=== PATIENT | male | born 1940 | race Caucasian/White ===

== ENCOUNTER → 2016-12-14 | Outpatient (CLI) | payer OTHER, MEDICARE | LOC: KOH-I 09:05 | DX: M25.572 Pain in left ankle and joints of left foot (principal) | CPT/HCPCS: 73610 ==

== ENCOUNTER → 2021-12-29 | Outpatient (CLI) | payer OTHER ==
[~2021-12-29] MED LIST: AMBIEN10 MG PO; ASPIR 8181 MG PO; ATORVASTATIN CA80 MG PO; FINASTERIDE5 MG PO; FLOMAX0.4 MG PO; GLUCOPHAGE850 MG PO; HYTRIN CAP 5 MG5 MG PO; LASIX20 MG PO; LEVEMIR FL100 UNIT/1 SQ; LOPRESSOR50 MG PO; NORCO 10-325 T1 EACH PO; NOVOLOG FL100 UNIT/1 SQ; PRINIVIL5 MG PO; XARELTO20 MG PO
== END ==
LOC: RAD 10:28
DX: R05.9 Cough, unspecified (principal)
CPT/HCPCS: 71046

== ENCOUNTER 2022-05-10 10:36 | Inpatient (IN) | payer OTHER ==
[~2022-05-10] VITALS: Ht 180.3 cm; Wt 77.1 kg
[~2022-05-10 10:36] MED LIST changes: +ATORVASTATIN CA40 MG PO; -ATORVASTATIN CA80 MG PO; +GLUCOPHAGE 850850 MG PO; -GLUCOPHAGE850 MG PO; +HYDROCODON-ACE1 EAC6 PO; -HYTRIN CAP 5 MG5 MG PO; -NORCO 10-325 T1 EACH PO; +TERAZOSIN HCL5 MG PO
[2022-05-10 15:14] LABS: HEMOGLOBIN 10.4 gm/dl (14.0-17.5); RED BLOOD COUNT 3.26 M/UL (4.20-5.50); WHITE BLOOD COUNT 14.7 K/UL (4.5-11.0)
[2022-05-10] MEDS ORDERED: CEPHALEXIN500 MG PO (15:58)
[2022-05-10] MEDS ORDERED: DOXYCYCLINE HY100 MG PO (15:58)
[2022-05-11 02:20] LABS: HEMOGLOBIN 9.3 gm/dl (14.0-17.5); WHITE BLOOD COUNT 14.8 K/UL (4.5-11.0)
[2022-05-11 02:30] LABS: RED BLOOD COUNT 2.89 M/UL (4.20-5.50)
[2022-05-11 02:57] LABS: BUN/CREATININE RATIO 14 (0-10)
[2022-05-11 08:54] LABS: HEMOGLOBIN 9.6 gm/dl (14.0-17.5); RED BLOOD COUNT 3.03 M/UL (4.20-5.50); WHITE BLOOD COUNT 13.2 K/UL (4.5-11.0)
[2022-05-11 09:22] LABS: BUN/CREATININE RATIO 15 (0-10)
[2022-05-11] MEDS ORDERED: OXYBUTYNIN CHLOR5 M1 PO (13:54)
[2022-05-11] MEDS ORDERED: VITAMIN C500 M4 PO (13:57)
--- NOTE | 2022-05-11 23:45 | NUR ---
PATIENT HAD RECEIVED AMBIEN ORDERED. NOW, CONFUSED , HALLUCINATING , ATTEMPTING TO GET OUT OF BED. ATTEMPTS TO REORIENT UNSUCCESSFUL. BED IN LOW POSTION, SR UP , BED ALARM ON.
--- NOTE | 2022-05-12 03:38 | NUR ---
CONTINUES TO ATTEMPT CLIMBING OVER SR OF BED. ATTEMPTS TO REORIENT UNSUCCESSFUL. HE RESPONDS BY LAUGHING . WILL CONTINUE TO MONITOR
[2022-05-12 04:47] LABS: HEMOGLOBIN 9.9 gm/dl (14.0-17.5); RED BLOOD COUNT 3.13 M/UL (4.20-5.50); WHITE BLOOD COUNT 11.8 K/UL (4.5-11.0)
[2022-05-12 06:07] LABS: BUN/CREATININE RATIO 13 (0-10)
[2022-05-13 04:56] LABS: RED BLOOD COUNT 3.17 M/UL (4.20-5.50); WHITE BLOOD COUNT 9.7 K/UL (4.5-11.0)
[2022-05-13 05:23] LABS: BUN/CREATININE RATIO 10 (0-10)
[2022-05-13] MEDS ORDERED: MULTAQ 400 MG400 MG PO (10:22)
[2022-05-13] MEDS ORDERED: BACTRIM DS TAB1 EACH PO (10:22)
== END 2022-05-13 17:03 | disposition home or self-care (01) | DRG 603 ==
LOC: ER1 10:36 → CCU 18:55 → CDU 18:55 → CCU 05-11 03:23 → PROG CARE 05-12 16:22
PROVIDERS: Emergency Medicine; ADMIT Family Medicine
PROC: B24BZZZ Ultrasonography of Heart with Aorta (ICD-10-PCS; principal; 2022-05-11)
PROC: 0J940ZZ Drainage of Right Neck Subcutaneous Tissue and Fascia, Open Approach (ICD-10-PCS; 2022-05-12)
DX: L02.11 Cutaneous abscess of neck (principal); I48.19 Other persistent atrial fibrillation; F01.50 Vascular dementia, unspecified severity, without behavioral disturbance, psychotic disturbance, mood disturbance, and anxiety; M51.36 Other intervertebral disc degeneration, lumbar region; N40.0 Benign prostatic hyperplasia without lower urinary tract symptoms; E78.5 Hyperlipidemia, unspecified; I10 Essential (primary) hypertension; L72.3 Sebaceous cyst; E87.6 Hypokalemia; E11.40 Type 2 diabetes mellitus with diabetic neuropathy, unspecified; G89.29 Other chronic pain; M54.9 Dorsalgia, unspecified; I25.10 Atherosclerotic heart disease of native coronary artery without angina pectoris; B95.62 Methicillin resistant Staphylococcus aureus infection as the cause of diseases classified elsewhere; Z87.891 Personal history of nicotine dependence; Z98.890 Other specified postprocedural states; Z83.6 Family history of other diseases of the respiratory system; Z82.3 Family history of stroke; I25.2 Old myocardial infarction; Z95.5 Presence of coronary angioplasty implant and graft; Z83.3 Family history of diabetes mellitus; Z79.899 Other long term (current) drug therapy; Z82.49 Family history of ischemic heart disease and other diseases of the circulatory system; Z79.82 Long term (current) use of aspirin
CPT/HCPCS: ECHO; 36415; 80048; 80053; 80202; 82550; 82553; 82962; 83605; 84439; 84443; 84484; 85025; 85027; 85652; 86140; 87040; 87070; 87077; 87086; 87186; 87205; 93005; 93306; 96365; 96366; 96375; 96376; 99284; G0378; J0692; J2405; J2704; J3010; J3370; J7070; U0002